=== PATIENT | male | born 1945 | race Caucasian/White ===

== ENCOUNTER 2020-01-13 16:39 | Inpatient (IN) | payer MEDICARE ==
--- NOTE | 2020-01-13 20:15 | NUR ---
NEW ADMIT TO DOCTOR TAYLOR FROM [facility] RELATED TO ALTERED MENTAL STATUS. PATIENT WAS CALM AND COOPERATIVE UPON ARRIVAL. HE IS A HEMODIALYSIS PATIENT MON, WED, FRI. HAS A LEFT CHEST PORT. PATIENTS SISTER, ALCIRA, CALLED. VERBAL CONSENT GIVEN. CODE STATUS OF DNR RECEIVED. PATIENT IS RESTING IN BED WITH EYES OPEN AT THIS TIME. ARETHA ALARM ACTIVE. CONTINUE TO MONITOR FOR SAFETY.
[2020-01-13 20:51] VITALS: BP 129/78
[2020-01-13] MEDS ORDERED: NORVASC10 MG PO (21:39)
[2020-01-13] MEDS ORDERED: ZETIA10 MG PO (21:40)
[2020-01-13] MEDS ORDERED: LOMOTIL 2.5-0.1 EAC1 PO (21:40)
[2020-01-13] MEDS ORDERED: FERRIC CITRATE210 MG PO (21:41)
[2020-01-13] MEDS ORDERED: PHENERGAN25 M1 PO (21:42)
[2020-01-13] MEDS ORDERED: MUPIROCIN15 GM TOPICAL (21:42)
[2020-01-13] MEDS ORDERED: PROTONIX40 MG PO (21:43)
[2020-01-13] MEDS ORDERED: CRESTOR40 MG PO (21:43)
[2020-01-13] MEDS ORDERED: ROCALTROL0.5 MCG PO (21:44)
[2020-01-13] MEDS ORDERED: COREG12.5 MG PO (21:44)
[2020-01-13] MEDS ORDERED: VITAMIN D1000 UNI1 PO (21:45)
[2020-01-13] MEDS ORDERED: SENSIPAR30 MG PO (21:45)
[2020-01-13] MEDS ORDERED: COLACE100 MG PO (21:46)
[2020-01-13] MEDS ORDERED: LASIX80 MG PO (21:48)
[2020-01-13] MEDS ORDERED: COZAAR100 MG PO (21:48)
[2020-01-13] MEDS ORDERED: RANITIDINE HCL150 M1 PO (21:49)
[2020-01-14 05:46] VITALS: BP 129/78
[2020-01-14 08:11] LABS: HEMOGLOBIN 9.7 g/dL (13.5-17.5); LYMPHOCYTES 16.6 % (15-50); MCHC 30.3 g/dL (31.0-37.0); MCV 95.5 fL (80.0-100.0); MEAN PLATELET VOLUME 9.2 fL (7.4-10.4); NEUTROPHILS 65.8 % (40-80); PLATELET COUNT 314 10x3/uL (130-400); RBC 3.35 10x6/uL (4.20-6.10); RDW 17.8 % (11.5-14.5); WBC 5.7 10x3/uL (4.8-10.8)
[2020-01-14 08:41] VITALS: BP 184/87
[2020-01-14 08:53] LABS: ALBUMIN 1.9 g/dL (3.4-5.0); BILIRUBIN - TOTAL 0.37 mg/dL (0.2-1.3); CALCIUM 9.9 mg/dL (8.5-10.1); CARBON DIOXIDE 28.7 mmol/L (21.0-32.0); CREATININE - SERUM 5.2 mg/dL (0.6-1.3); LDL-HDL RATIO 1.8 ratio (1.5-3.5); POTASSIUM - SERUM 4.7 mmol/L (3.5-5.1); PROTEIN - SERUM 6.1 g/dL (6.4-8.2); THYROID STIMULATING HORMONE 1.01 uIU/mL (0.36-3.74)
--- NOTE | 2020-01-14 12:00 | NUR ---
RECEIVED IN HALLWAY OUTSIDE OF NURSES STATION. CALM AND COOPERATIVE WITH CARE AND ASSESSMENT. NO HALLUCINATIONS NOTED. REDIRECT AND REORIENT NEEDED. EATING LUNCH AT THIS TIME. CONTINUE PLAN OF CARE.
[2020-01-14 14:12] VITALS: Wt 71.4 kg
--- NOTE | 2020-01-14 19:19 | NUR ---
RECEIVED IN DAYROOM. SITTING IN A CHAIR WITH PEERS AT HIS SIDE. CALM AND COOPERATIVE WITH CARE AND ASSESSMENT. NO SIGNS OF HALLUCIANTIONS OR PARANIOA. REDIRECT AND REORIENT NEEDED. CONTINUES TO SIT CALMLY. CONTINUE PLAN OF CARE.
[2020-01-14 20:24] VITALS: BP 158/74
[2020-01-15 07:12] LABS: RAPID PLASMA REAGIN Non Reactive (Non Reactive)
[2020-01-15 08:00] VITALS: BP 162/91
--- NOTE | 2020-01-15 12:00 | NUR ---
RECEIVED IN HALLWAY OUTSIDE OF NURSES STATION. CALM AND COOPERATIVE WITH CARE AND ASSESSMENT. NONCOMPLIANT AND REFUSING MEDS. DEMANDING AT TIMES. NO HALLUCINATIONS NOTED. REDIRECT AND REORIENT NEEDED. EATING AT THIS TIME. CONTINUE PLAN OF CARE.
--- NOTE | 2020-01-15 12:53 | PSY ---
PATIENT NAME:JOSE M SERVIN MEDICAL RECORD: [id number] : 43 LOCATION:AUBREY Jones ADMISSION DATE: 01/13/20 ACCOUNT: [id number] PSYCHIATRIC EVALUATION DATE OF EVALUATION: 01/14/20 IDENTIFYING DATA: The patient is 74 years old and he is admitted to the hospital on a voluntary basis. CHIEF COMPLAINT: Agitation. HISTORY OF PRESENT ILLNESS: The patient is transferred to us from a hospital in [place]. He was there because of confusion and he was felt to need inpatient mental health treatment, but this hospital is one of the few that can accept him if he is in need of mental health treatment and dialysis. The patient is clearly quite confused and disorganized and not able to provide very much in the way of useful history. He is documented to have been combative and to have hallucinations, both of which he denies. It is clear that he has severe memory impairment. PAST MEDICAL HISTORY: Significant for hypertension, end-stage renal disease with dialysis treatment. PAST PSYCHIATRIC HISTORY: Negative by his report, which is unreliable. FAMILY HISTORY: Significant for cancer. ALLERGIES: No known drug allergies. CURRENT MEDICATIONS: Include Norvasc, Lomotil, Zetia, iron, Phenergan, Crestor, Protonix, Coreg, Colace, Lasix and Cozaar. SOCIAL HISTORY: The patient is single. He says he has never been and has no children. Again, he is not a good historian. He says he used to smoke cigarettes, has smoked marijuana and has never been a drinker. MENTAL STATUS EXAMINATION: The patient is awake, alert and oriented to person and place, and only somewhat to time and situation. His mood is flat. His affect is constricted. Thought processes are circumstantial. Memory, concentration, and abstraction abilities are moderately impaired and he denies that he would seek to harm himself or others as well as active psychotic symptoms. ASSETS: Supportive family members, specifically his brother. LIABILITIES: Limited insight. DIAGNOSTIC IMPRESSION: AXIS I: Advanced major neurocognitive disorder of the Alzheimer's type with behavioral disturbances. AXIS II: None. AXIS III: Hypertension and end-stage renal disease. AXIS IV: Moderate. AXIS V: Global assessment of functioning is 35. PLAN: At this time, the patient is admitted to the hospital secondary to aggressive behavior associated with a dementing illness. He will be treated with both mood stabilizing and memory enhancing medications. His long-term prognosis is guarded. TRANSINT:[id number] Voice Confirmation ID: [id number] DOCUMENT ID: [id number] LEANDRO TAYLOR MD at 1253 CC: [id number] DICTATION DATE: 01/14/20 1208 LAUNCHING PAD MECHANIC: 01/14/20 1237 ADM IN [address] [id number] [place] [address]
[2020-01-15 20:06] VITALS: BP 159/81
--- NOTE | 2020-01-15 22:41 | NUR ---
B.) PT IS ALERT AND ORIENTED TO SELF, AND SITUATION AT TIMES. HE IS RECEIVED IN THE DAYROOM IN A GERICHAIR. HE USES A WHEELCHAIR TO ASSIST WITH AMBULATION. HE IS CALM AND COOPERATIVE WITH STAFF. DIALYSIS HAS BEEN POSTPONED UNTIL TOMORROW. I.) PROVIDED PM MEDICATION PRESCRIBED. REDIRECT OFTEN. R.) COMPLIANT WITH ALL MEDICATIONS. EASY TO REDIRECT. P.) WILL CONTINUE TO MONITOR.
[2020-01-16 10:30] VITALS: BP 157/97
--- NOTE | 2020-01-16 14:05 | NUR ---
Nutrition Follow-up: Overall good/fair PO intake. Diet: Renal PO intake: 76% avg x 6 meals Wt: 146.8# (01/13) No BMs recorded No new labs Meds noted: Pepcid, Sensipar, vitamin D, Calcitriol, Protonix, Colace, Lomotil, Lasix -Encourage PO intake and honor food preferences within diet restrictions. -Offer Nepro if PO intake <50%. -Monitor wt. -RD following.
--- NOTE | 2020-01-16 14:44 | PN ---
PATIENT:JOSE M SERVIN MEDICAL RECORD: [id number] LOCATION:AUBREY Toro ADMISSION DATE: 01/13/20 PROGRESS NOTE DATE OF SERVICE: 01/15/2020 SUBJECTIVE: The patient's case was discussed with staff. He has no new complaint. OBJECTIVE: The patient is in good behavioral control. He is cooperative, polite, but not oriented. He is refusing to take all of his medications and when asked about this, he insists he has been taking them. I have encouraged him to take his medicines that there is little that we can do to help him if he will not do so. ASSESSMENT: Dementia. PLAN: Current medicines will be maintained. There is little point in trying to adjust them when he is not taking what is currently ordered consistently. Every effort will be made to have him engage in compliance. There does not seem to be some particular objection to a medicine or anything in general, he just is refusing to cooperate, but then insists to me that he is. TRANSINT:[id number] Voice Confirmation ID: [id number] DOCUMENT ID: [id number] LEANDRO TAYLOR MD at 1444 CC: [id number] DICTATION DATE: 01/15/20 1557 PULPER OPERATOR: 01/15/20 1616 ADM IN [facility] [address] [place] [address]
--- NOTE | 2020-01-16 18:05 | NUR ---
PT SISTER CALLED TO CHECK ON HIM. PASSCODE GIVEN. SISTER ASKED HOW HE WAS DOING TODAY. NURSE STATED HE WAS THINKING HIS WAS WAITING IN THE TRUCK FOR HIM AND HE WOULD BE IN TROUBLE IF HE DIDNT MEET HER IN THE TRUCK. NURSE ATTEMPTEDT TO REDIRECT PT AND HE BECAME ARGUEMENTATIVE STATING "WELL LUÍS GOT TO GET MY OUT OF THE TRUCK." EXIT-SEEKING. NURSE ABLE TO REDIRECT TO EAT DINNER. PT SISTER STATED "WELL DID YOU GIVE HIM SOMETHING TO MESS WITH HIS HEAD?" NURSE ASKED MEANING. SHE STATED I MEAN HE WAS CLEAR YESTERDAY, HE REPEATED EVERYTHING I SAID AND WAS TALKING TO ME." NURSE STATED NO NEW MEDICATIONS WERE ADDED THIS SHIFT THAT PT TOOK. HE DID HAVE DIALYSIS AND TOLERATED WELL.
[2020-01-16 20:00] VITALS: BP 122/72
--- NOTE | 2020-01-16 22:12 | NUR ---
B)RECEIVED PATIENT SITTING IN THE DAYROOM. CONFUSED AND DISORIENTED. RELATED HE IS IN [place]" THEN RELATED "I DON'T KNOW WHERE I AM." RELATES HE IS HERE "FOR DIALYSIS." COULD NOT TELL NURSE WHAT HIS DIALYSIS DAYS ARE. TOLD NURSE "I NEED TO GO TO MY TRUCK. I'M GOING HOME TONIGHT." I)ADMINISTER MEDS AND MONITOR COMPLIANCE. REORIENT NEEDED. R)MED COMPLIANT. POOR REORIENTATION DUE TO IMPAIRED ABILITY TO COMPREHEND, PROCESS AND RETAIN INFORMATION. P)CONTINUE POC AND PROVIDE SAFE ENVIRONMENT.
[2020-01-17 07:13] LABS: HEPATITIS C ANTIBODY <0.1 (0.0-0.9)
[2020-01-17 09:41] VITALS: BP 100/51
--- NOTE | 2020-01-17 11:20 | NUR ---
PT LAYING ON THE COUCH WITH EYES CLOSED. PT STATED HE DID NOT FEEL GOOD AT THIS TIME. PT IS CONFUSED AND DISORIENTED TO PLACE, TIME AND SITUATION. PT IS COMPLIANT WITH MEDS, VITALS AND ASSESSMENTS. NURSE HELD BP MEDICAITIONS DUE TO LOW BLOOD PRESSURE. MAKE DR. QUESADA AWARE OF LOW BLOOD PRESSURE AND GENERAL FATIGUE. PT REQUIRES ASSISTANCE WITH TRANSFERS. CHAIR ALARM IN PLACE AND ACTIVE. WILL CONT PLAN OF CARE.
--- NOTE | 2020-01-17 13:47 | PN ---
PATIENT:JOSE M SERVIN MEDICAL RECORD: [id number] LOCATION:AUBREY Zhao112 ADMISSION DATE: 01/13/20 PROGRESS NOTE DATE OF SERVICE: 01/16/2020 SUBJECTIVE: The patient's case was discussed with staff. He has no new complaint. OBJECTIVE: The patient is only oriented to person. He is severely impaired cognitively. He denies that he would seek to harm himself or others. It is clear that he has an advanced dementia and it is furthermore clear that this did not start recently by that I mean this is not an acute process. ASSESSMENT: Dementia. PLAN: The patient is going to be given Namenda at a dose of 2.5 mg twice daily to assist with his cognitive impairment. The patient has consented to stay on a voluntary basis. He is wanting me to assist him. This patient is impaired in a serious way and is going to need 63-mmkt-j-day supervision. His sister, Viviane has called and had her document review attorney call. She wants him to sign documents giving her power of document review attorney over his state. I am aware that there are 2 other siblings and that they are disagreeing about fdc placement versus just taking him home and caring for him. At this point, I am not comfortable with this process. The patient does not understand what he is signing; I think it is inappropriate for him to be asked to sign such a document given his current mental status. If there is additional resistance to this decision, I am going to defer to the judgment of the hospital document review attorney. At this point, my interest is in protecting him and I do not see why it is urgent that the power of document review attorney for his state be signed today. TRANSINT:[id number] Voice Confirmation ID: [id number] DOCUMENT ID: [id number] LEANDRO TAYLOR MD at 1347 CC: [id number] DICTATION DATE: 01/16/20 1452 LITHOGRAPHIC CAMERA OPERATOR: 01/16/202026 ADM IN [facility] [address] [id number]
--- NOTE | 2020-01-17 17:37 | NUR ---
ALCIRA WHITLOCK CALLED TO CHECK ON PT CONDITION. PASSCODE GIVEN. SHE WANTED TO KNOW HOW HE WAS DOING AND IF HE WAS ANY CLEARER TODAY. SHE WANTED TO KNOW IF THE DOCTOR HAD EVAL HIM AT ALL. NURSE READ DOCTOR DIAGNOSIS TO HER STATING "ADVANCED MAJOR NEUROCOGNITIVE DISORDER OF THE ALZHEIMER'S TYPE WITH BEHAVIORAL DISTURBANCES. WAS THE DIAGNOSIS IN THE DOCTORS NOTE." SHE STATED SO HE IS INCOMPETENT?" NURSE EXPLAINED THE DIAGNOSIS STATED ADVANCED ALZHEIMERS TYPE. SHE STATED OKAY WELL CAN I TALK TO HIM.
[2020-01-17 20:00] VITALS: BP 121/70
--- NOTE | 2020-01-17 20:00 | NUR ---
PATIENT IS VERY CONFUSED, NOT TRUSTING AT TIMES, COMPLIANT WITH MEDS MOST OF THE TIME, FLAT AFFECT, ISOLATES SELF, MAKES SIMPLE NEEDS KNOWN, DISHEVELED IN APPEARANCE. WILL MONITOR AND FOLLOW POC
[2020-01-18 07:12] LABS: HEPATITIS BE ANTIGEN Negative (Negative)
[2020-01-18 09:03] VITALS: BP 145/89
--- NOTE | 2020-01-18 12:02 | NUR ---
PT SITTING EATING LUNCH AT THIS TIME. PT IS FRIENDLY WITH STAFF AND PEERS THIS SHIFT. CAN MAKE NEEDS KNOWN. NO ACUTE DISTRESS NOTED. COMPLIANT WITH MEDS, VITALS AND ASSESSMENTS. CONFUSED AND ALERT TO SELY ONLY. CHAIR ALARM IN PLACE AND ACTIVE. WILL CONT PLAN OF CARE.
--- NOTE | 2020-01-18 12:44 | PN ---
PATIENT:JOSE M SERVIN MEDICAL RECORD: [id number] LOCATION:AUBREY Toro ADMISSION DATE: 01/13/20 PROGRESS NOTE DATE OF SERVICE: 01/17/2020 SUBJECTIVE: The patient's case was discussed with staff. He has no new complaint. OBJECTIVE: The patient is quite impaired cognitively. He denies that he would seek to harm himself or others. He has not been significantly agitated with staff today. ASSESSMENT: Dementia. PLAN: The patient is going to be given Megace to assist with appetite stimulation. His long-term prognosis is guarded. TRANSINT:[id number] Voice Confirmation ID: [id number] DOCUMENT ID: [id number] LEANDRO TAYLOR MD at 1244 CC: [id number] DICTATION DATE: 01/17/201423 SOCCER REFEREE: 01/17/20 2139 ADM IN [facility] [address] [place] [address]
--- NOTE | 2020-01-18 13:40 | NUR ---
PT SISTER CALLED AND ASKED THAT IF HIS SIBLINGS CALL TO MAKE SURE THEY DONT UPSET HIM. IF THEY DO TO CUT HIM OFF. NURSE EXPLAINED THAT HE WOULD HAVE TO SAY YES OR NO ON CUTTING THEM OFF CAUSE HE STILLIS HIS OWN PERSON BUT WE WOULD NOT FORCE HIM TO TALK TO THEM.
[2020-01-18 20:00] VITALS: BP 127/79
--- NOTE | 2020-01-18 22:42 | NUR ---
B)RECEIVED PATIENT SITTING IN THE DAYROOM. RELATES HE IS IN THE HOSPITAL ON THE [facility] [place]. NO INSIGHT INTO THE REASON FOR HOSPITALIZATION RELATING "THEY SAID I WAS ACTING AND DOING CRAZY THINGS.". UNKEPT APPEARANCE. DOES NOT INITIATE CONVERSATION. FAMILY CALLED AND WAS ASKING WHO ALL HAD CALLED PATIENT AND IF HE GOT UPSET WHEN TALKING WITH THESE PEOPLE. I)ADMINISTER MEDS AND MONITOR COMPLIANCE. REORIENT NEEDED. R)MED COMPLIANT. POOR REORIENTATION DUE TO IMPAIRED ABILITY TO RETAIN INFORMATION. P)CONTINUE POC AND PROVIDE SAFE ENVIRONMENT.
[2020-01-19 09:33] VITALS: BP 185/98
--- NOTE | 2020-01-19 10:03 | PN ---
PATIENT:JOSE M SERVIN MEDICAL RECORD: [id number] LOCATION:AUBREY Toro ADMISSION DATE: 01/13/20 PROGRESS NOTE DATE OF SERVICE: 01/18/2020 SUBJECTIVE: The patient's case was discussed with staff. He has no new complaint. OBJECTIVE: The patient is not eating well. He has been quiet and somewhat withdrawn. He is only partially oriented. ASSESSMENT: Dementia. PLAN: Current medicines have been reviewed and will be maintained. Long-term prognosis is guarded. I anticipate he can be transitioned out of the hospital soon if this level of improvement continues. TRANSINT:[id number] Voice Confirmation ID: [id number] DOCUMENT ID: [id number] LEANDRO TAYLOR MD at 1003 CC: [id number] DICTATION DATE: 01/18/20 1346 ETL INFORMATICA ARCHITECT: 01/18/20 1753 ADM IN [facility] [address] [place] [address]
--- NOTE | 2020-01-19 12:00 | NUR ---
RECEIVED IN HALLWAY OUTSIDE OF NURSES STATION. CALM AND COOPERATIVE WITH CARE AND ASSESSMENT. VERY CONFUSED. THINKS EVERYONE IS IN HIS HOUSE. YELLING AT EVERYONE TO GET OUT OF HIS HOUSE. REDIRECT AND REORIENT NEEDED. EATING LUNCH AT THIS TIME. CONTINUE PLAN OF CARE.
--- NOTE | 2020-01-19 19:52 | NUR ---
RECEIVED IN DAYROOM. SITTING IN A CHAIR DURING GROUP. CALM AND COOPERATIVE WITH CARE NAD ASSESSMENT. NO SIGNS OF AGGRESSION OR HALLUCINATIONS. REDIRECT AND REORIENT NEEDED. CONTINUES TO SIT CALMLY IN DAYROOM. CONTINUE PLAN OF CARE.
[2020-01-19 20:00] VITALS: BP 149/80
[2020-01-20 07:51] LABS: BASOPHILS 0.4 % (0-2); EOSINOPHILS 2.7 % (0-7); HEMATOCRIT 29.1 % (42.0-54.0); HEMOGLOBIN 9.2 g/dL (13.5-17.5); IMMATURE GRANULOCYTES 0.3 % (0-5); LYMPHOCYTES 17.6 % (15-50); MCH 29.1 pg (26.0-34.0); MCHC 31.6 g/dL (31.0-37.0); MCV 92.1 fL (80.0-100.0); MEAN PLATELET VOLUME 9.5 fL (7.4-10.4); MONOCYTES 15.7 % (2-11); NEUTROPHILS 63.3 % (40-80); PLATELET COUNT 326 10x3/uL (130-400); RBC 3.16 10x6/uL (4.20-6.10); RDW 16.4 % (11.5-14.5); WBC 7.1 10x3/uL (4.8-10.8)
[2020-01-20 07:57] LABS: CALCIUM 10.1 mg/dL (8.5-10.1); CARBON DIOXIDE 26.8 mmol/L (21.0-32.0); CREATININE - SERUM 6.7 mg/dL (0.6-1.3); POTASSIUM - SERUM 3.8 mmol/L (3.5-5.1)
[2020-01-20 09:39] VITALS: BP 176/89
--- NOTE | 2020-01-20 12:00 | NUR ---
RECEIVED IN HALLWAY OUTSIDE OF NURSES STATION. CALM AND COOPERATIVE WITH CARE AND ASSESSMENT. NO BEHAVIORS. REDIRECT AND REORIENT NEEDED. EATING LUNHC AT THIS TIME. CONTINUE PLAN OF CARE.
--- NOTE | 2020-01-20 13:21 | PN ---
PATIENT:JOSE M SERVIN MEDICAL RECORD: [id number] LOCATION:AUBREY Toro ADMISSION DATE: 01/13/20 PROGRESS NOTE DATE OF SERVICE: 01/19/2020 SUBJECTIVE: The patient's case was discussed with staff. He has no new complaint. OBJECTIVE: The patient is disorganized and confused. He is angry and wants me to unlock the door so he can get to his truck, which he believes is in the parking lot. It is not in a parking lot, but he is argumentative about that. He states that he wants to get his truck and move to [place], [place]. He says that he can drive and live there independently. ASSESSMENT: Dementia. PLAN: The patient is going to be given a low dose of Celexa for his depressed mood. He will be monitored for clinical changes associated with its use. TRANSINT:[id number] Voice Confirmation ID: [id number] DOCUMENT ID: [id number] LEANDRO TAYLOR MD at 1321 CC: [id number] DICTATION DATE: 01/19/20 1129 COMMERCIAL DRONE PILOT: 01/19/20 1441 ADM IN [facility] [address] [place] [address]
[2020-01-20 14:09] LABS: HEPATITIS BE ANTIBODY Negative (Negative)
--- NOTE | 2020-01-20 19:41 | NUR ---
RECEIVED IN DAYROOM. SITTING IN A RECLINER WITH PEERS AT HIS SIDE. CALM AND COOPERATIVE WITH CARE AND ASSESSMENT. NO SIGNS OF HALLUCINATIONS. REDIRECT AND REORIENT NEEDED. SITTING CALMLY IN HALLWAY OUTSIDE OF NURSES STATION AT THIS TIME. CONTINUE PLAN OF CARE.
[2020-01-20 19:49] VITALS: BP 122/71
[2020-01-21 08:09] VITALS: BP 127/72
--- NOTE | 2020-01-21 12:00 | NUR ---
RECEIVED IN HALLWAY OUTSIDE OF NURSES STATION. CALM AND COOPERATIVE WITH CARE AND ASSESSMENT. NO BEHAVIORS TODAY. REDIRECT AND REORIENT NEEDED. EATING LUNCH AT THIS TIME. CONTINUE PLAN OF CARE.
--- NOTE | 2020-01-21 13:18 | PN ---
PATIENT:JOSE M SERVIN MEDICAL RECORD: [id number] LOCATION:CULLENPriyanka SpikeLesaMiryam ADMISSION DATE: 01/13/20 PROGRESS NOTE DATE OF SERVICE: 01/20/2020 SUBJECTIVE: The patient's case was discussed with staff. He has no new complaint. OBJECTIVE: The patient is impaired cognitively and difficult to redirect at times. ASSESSMENT: Dementia. PLAN: The patient's Namenda is going to be increased slightly. Namenda is being used to treat his underlying dementia. He will be monitored for clinical changes associated with its use. TRANSINT:[id number] Voice Confirmation ID: [id number] DOCUMENT ID: [id number] LEANDRO TAYLOR MD at 1318 CC: [id number] DICTATION DATE: 01/20/20 1520 INFORMATION SYSTEMS AUDIT MANAGER: 01/20/20 2238 ADM IN [id number] [place] [address]
--- NOTE | 2020-01-21 19:56 | NUR ---
RECEIVED IN DAYROOM SITTING IN A RECLINER WITH PEERS AT HIS SIDE. CALM AND COOPERATIVE WITH CARE AND ASSESSMENT. NO SIGNS OF AGGRESSION. REDIRECT AND REORIENT NEEDED. CONTINUES TO SIT CALMLY IN DAYROOM. CONTINUE PLAN OF CARE.
[2020-01-21 20:11] VITALS: BP 115/61
[2020-01-22 08:36] VITALS: BP 114/69
[2020-01-22 09:12] LABS: BASOPHILS 0.3 % (0-2); HEMATOCRIT 24.7 % (42.0-54.0); HEMOGLOBIN 7.6 g/dL (13.5-17.5); IMMATURE GRANULOCYTES 0.3 % (0-5); LYMPHOCYTES 17.9 % (15-50); MCH 28.4 pg (26.0-34.0); MCHC 30.8 g/dL (31.0-37.0); MCV 92.2 fL (80.0-100.0); MEAN PLATELET VOLUME 9.6 fL (7.4-10.4); MONOCYTES 19.2 % (2-11); NEUTROPHILS 60.3 % (40-80); PLATELET COUNT 331 10x3/uL (130-400); RBC 2.68 10x6/uL (4.20-6.10); RDW 16.7 % (11.5-14.5); WBC 6.9 10x3/uL (4.8-10.8)
[2020-01-22 09:15] LABS: ANION GAP 12.2 mmol/L (8-16); CALCIUM 10.3 mg/dL (8.5-10.1); CARBON DIOXIDE 26.8 mmol/L (21.0-32.0); CREATININE - SERUM 4.9 mg/dL (0.6-1.3)
--- NOTE | 2020-01-22 13:35 | PN ---
PATIENT:JOSE M SERVIN MEDICAL RECORD: [id number] LOCATION:AUBREY LalaLesaMiryam ADMISSION DATE: 01/13/20 PROGRESS NOTE DATE OF SERVICE: 01/21/2020 SUBJECTIVE: The patient's case was discussed with staff. He has no new complaint. OBJECTIVE: The patient is partially oriented. His mood is euthymic. He slept well last night and he ate well yesterday. ASSESSMENT: Dementia. PLAN: Brief supportive and educational interventions were made. Long-term prognosis is guarded. TRANSINT:[id number] Voice Confirmation ID: [id number] DOCUMENT ID: [id number] LEANDRO TAYLOR MD at 1335 CC: [id number] DICTATION DATE: 01/21/20 1539 RAILROAD CAR CHECKER: 01/22/20 0047 ADM IN [facility] [address] [place] [address]
--- NOTE | 2020-01-22 19:06 | NUR ---
RECEIVED UP SITTING IN WHEELCHAIR AT NURSES STATION THIS AM.IS COMPLIANT WITH STAFF AND MEDICATIONS.NO HALLUCINATIONS OBSERVED.WILL CONTINUE [facility] CURRENT PLAN OF CARE.
[2020-01-22 20:03] VITALS: BP 110/61
--- NOTE | 2020-01-22 21:11 | NUR ---
PATIENT IS CONFUSED, PLEASANT MOST OF THE TIME, COMPLIANT WITH MEDS, NO ADVERSE REACTION NOTED, CAN MAKE NEEDS KNOWN, COMMUNICATES WITH OTHERS MINIMALLY. WILL FOLLOW POC
--- NOTE | 2020-01-23 08:00 | NUR ---
FIRST UNIT OF BLOOD HANGING AT THIS TIME. PT DENIES ANY PAIN. I.V. SITE INTACT AND PATENT. WILL CONT TO MONITOR.
--- NOTE | 2020-01-23 08:40 | NUR ---
PT IN BED AT THIS TIME. NEW ORDERS FOR 2 UNITS OF PACKED RED BLOOD CELLS. PT IS CONFUSED AND DISORIENTED. REDIRECT AND REORIENT NEEDED. NO ACUTE DISTRESS NOTED. PT IS DROWSY AT THIS TIME. PT COMPLIANT WITH MEDS, VITALS AND ASSESSMENTS. PT 2X ASSIST WITH TRANFERS. BED ALARM ON AND ACTIVE AT THIS TIME. WILL CONT PLAN OF CARE.
--- NOTE | 2020-01-23 09:55 | NUR ---
FIRST UNIT OF PACKED RED CELLS HUNG AT 0949. PT TOLERATING WELL. VITALS SIGNS: T: 97.7, P: 78, R: 18, B/P: 124/69. WILL RECHECK VITALS.
--- NOTE | 2020-01-23 10:05 | NUR ---
VITALS SIGNS: T: 98.3, P: 77, R: 18, B/P: 126/53. NO S/S OF REACTION NOTED. WILL CONT TO MONITOR FOR S/SX.
[2020-01-23 10:26] LABS: BASOPHILS 0.6 % (0-2); EOSINOPHILS 2.3 % (0-7); HEMOGLOBIN 7.7 g/dL (13.5-17.5); IMMATURE GRANULOCYTES 0.8 % (0-5); LYMPHOCYTES 16.9 % (15-50); MCH 28.5 pg (26.0-34.0); MCHC 30.8 g/dL (31.0-37.0); MCV 92.6 fL (80.0-100.0); MEAN PLATELET VOLUME 9.7 fL (7.4-10.4); MONOCYTES 15.3 % (2-11); NEUTROPHILS 64.1 % (40-80); PLATELET COUNT 368 10x3/uL (130-400); RDW 16.8 % (11.5-14.5); WBC 7.1 10x3/uL (4.8-10.8)
--- NOTE | 2020-01-23 10:45 | NUR ---
NURSE CHECKED ON PT. PT SLEEPING AT THIS TIME. I.V. PATENT AND FLOWING AT THIS TIME.
--- NOTE | 2020-01-23 11:20 | NUR ---
PT SLEEPING AT THIS TIME. NO REACTION NOTED.
--- NOTE | 2020-01-23 12:25 | NUR ---
VITALS: 97.6, 76, 16, 140/68. FIRST VITAL SIGNS FOR SECOND UNIT OF PACKED BLOOD CELLS.
--- NOTE | 2020-01-23 12:45 | NUR ---
15 MINUTES VITALS AFTER SECOND BAG HUNG: T: 97.6 ORAL, P: 76, R: 16, B/P: 148/76. WILL CONT TO MONITOR.
--- NOTE | 2020-01-23 13:38 | NUR ---
Nutrition Follow-up: PO intake fluctuates. Ate 25-90% of meals yesterday. Noted Megace started 01/17. Diet: Renal PO intake: 57% avg x 9 meals WT: 148.4# (01/18); 146.8# (01/13) Last BM: 01/21 Labs reviewed Meds noted: Megace, Pepcid, Sensipar, vitamin D, Calcitriol, Protonix, Colace, Lasix -Encourage PO intake and honor food preferences within diet restrictions. -+Nepro BID. -Monitor wt. -RD following.
--- NOTE | 2020-01-23 14:01 | PN ---
PATIENT:JOSE M SERVIN MEDICAL RECORD: [id number] LOCATION:AUBREY Toro ADMISSION DATE: 01/13/20 PROGRESS NOTE DATE OF SERVICE: 01/22/2020 SUBJECTIVE: The patient's case was discussed with staff. He has no new complaint. OBJECTIVE: The patient is quite disorganized and cognitively impaired, but his behavior is good. He is eating and sleeping well and he is cooperative with dialysis. ASSESSMENT: Dementia. PLAN: Brief supportive and educational interventions were provided current medicines were reviewed. He will be transitioned to the fpc in [place] as soon as he is medically stabilized and the office of long-term care gives approval. TRANSINT:[id number] Voice Confirmation ID: [id number] DOCUMENT ID: [id number] LEANDRO TAYLOR MD at 1401 CC: [id number] DICTATION DATE: 01/22/20 1521 AUTOMATIC PILOT MECHANIC: 01/23/20 0145 ADM IN [facility] [address] [place] [address]
--- NOTE | 2020-01-23 15:26 | NUR ---
PT LAYING IN BED AT THIS TIME. PT IS STILL ON I.V. RECIEVING BLOOD AT THIS TIME. PT TOLERATING WELL AND CONSENT SIGNED ON THE CHART. PT IS CONFUSED AT TIMES. PT IS ALERT AND ORIENTED AT THIS TIME. REDIRECT AND REORIENT NEEDED. BED ALARM ON AND IN PLACE AND ACTIVE. PT IS IN A GOOD MOOD. IV INTACT AND DRY. WILL CONT TO MONITOR AND PLAN OF CARE.
[2020-01-23 16:03] VITALS: BP 124/69
--- NOTE | 2020-01-23 17:34 | NUR ---
SECOND INFUSION PARTICALLY COMPLETED AT THIS TIME. PT VITALS SIGNS: 141/73, P: 73, R: 16, O2: 94%, T: 98.1. PT TOLERATED WELL. PT CONTS WITH CONFUSION AT THIS TIME. WILL RECHECK VITALS Q 1 HOUR. BED ALARM ON AND ACTIVE. WILL CONT TO MONITOR.
--- NOTE | 2020-01-23 18:54 | NUR ---
T: 98.4, P: 73, B/P: 143/79, 94% R: 15.
--- NOTE | 2020-01-23 19:14 | NUR ---
3 OF PTS FAMILY MEMBERS CALLED THIS SHIFT. NURSE NOTIFIED THEM THE PT DID NOT FEEL GOOD AND SHE DID NOT WANT TO WAKE HIM UP. THEY VERBALIZIED UNDERSTANDING. PT REFUSED DIALYSIS. ALCIRA CHINYERE STATED SHE WANTED THE PT TO SIGN POA PAPERWORK SO SHE COULD PAY HIS LIGHT BILL AND FURNITURE PAYMENT. SHE ATTEMPTEDT TO PAY IT AND THEY REFUSED HER TO PAY HIS BILLS. NURSE DIRECTED HER TO CALL IN THE A.M. AND SPEAK WITH THE COLLECTIONS DIRECTOR IN REGARDS TO THAT MATTER. THAT USUALLY PTS DO NOT SIGN LEGAL PAPERWORK WHILE ADMITTED TO OUR UNIT.
[2020-01-23 20:00] VITALS: BP 135/74
[2020-01-23 20:29] LABS: HEMATOCRIT 28.7 % (42.0-54.0)
[2020-01-23 20:32] LABS: HEMOGLOBIN 9.3 g/dL (13.5-17.5)
--- NOTE | 2020-01-23 22:35 | NUR ---
B)RECEIVED PATIENT LYING IN THE BED. PT RECEIVED PRBCS TODAY AND DID NOT FEEL LIKE RECEIVING HIS DIALYSIS TREATMENT TODAY WHEN THE DIALYSIS NURSE CAME TO THE UNIT. CONFUSED AND DISORIENTED. POOR INSIGHT RELATING HE IS HERE "GET MY LEG CHECKED. THINK IT WAS CRACKED." SALINE LOCK TO RIGHT HAND. I)ADMINISTER MEDS AND MONITOR COMPLIANCE. REORIENT NEEDED. R)MED COMPLIANT. POOR REORIENTATION DUE TO IMPAIRED ABILITY TO PROCESS AND REATIN INFORMATION. P)CONTINUE POC AND PROVIDE SAFE ENVIRONMENT.
[2020-01-24 07:11] LABS: % SATURATION 12 % (15-55); IRON 26 ug/dl (35-150); TOTAL IRON BIND CAPACITY 201 ug/dl (260-445); UNSAT IRON BIND CAPACITY 175 ug/dl (150-375)
[2020-01-24 07:37] LABS: FERRITIN 382 ng/mL (3-244)
[2020-01-24 09:57] VITALS: BP 167/86
--- NOTE | 2020-01-24 10:59 | NUR ---
PT SITTING IN W/C SOCIALIZING WITH PEERS. PT IS CALM AND COOPERATIVE WITH STAFF. CONFUSION NOTED. PT ALERT TO SELF ONLY. PT IS COMPLIANT WITH MEDS, VITALS AND ASSESSMENTS. PT HAS DIALYSIS TODAY. IV IN RIGHT FOREARM. PT REQURIES ASSISTANCE WITH ADLS. PT IN A W/C. STILL WORKING WITH P.T. CHAIR ALARM IN PLACE AND ACTIVE. WILL CONT PLAN OF CARE.
--- NOTE | 2020-01-24 15:33 | NUR ---
TOO CONTACTED PT'S SISTER PER HER REQUEST. WENT TO . TOO LEFT A MESSAGE EXPLAINING PT HAS BEEN REFERRED TO [facility] BUT THEY STATED THEY HAVE NO LTC BEDS AVAIALABLE BUT THEY DO HAVE REHAB BEDS. TOO ADVOCATED FOR HIM TO GO TO THEM FOR REHAB. TOO STATED SHE CAN COME PICK PT UP IF SHE WANTS HIM DISCHARGED FROM UNIT. PT IS STABLE AND NEEDS A SAFE DISCHARGE PLAN. TOO WILL AWAIT PT'S SISTER TO CONTACT HER AGAIN FOR A SAFE DISCHARGE PLAN. IT WAS ALSO REPORTED SHE WANTS TO SPEAK TO THE MD. TOO ALERTED CHERELLE CABALLERO AND SHE MADE PHONE CALL TO PT'S SISTER.
--- NOTE | 2020-01-24 15:38 | NUR ---
chaitanya arroyo called and wanted to know if he was discharging today its been 14 days. nurse explained that from the information she recieved that a referral was made that we were waiting for a yes or no from that facility. she wanted to know why the doctor hadnt called her this shift. nurse notified her that joão was here at this time. she wanted to know if she could talk to her. nurse attempted to explain she would have to call her office and see if she was there. she said she would call chey the social service liaison.
[2020-01-24 20:00] VITALS: BP 105/56
--- NOTE | 2020-01-24 21:45 | NUR ---
B.) PT IS ALERT AND ORIENTED TO SELF ONLY. HE IS CALM AND COOPERATIVE WITH STAFF. HE USES A WHEELCHAIR TO ASSIST WITH AMBULATION. HE IS RECEIVED IN THE HALLWAY OUTSIDE THE NURSES STATION SOCIALIZING WITH HIS PEERS. I.) PROVIDED PM MEDICATIONS PRESCRIBED. REDIRECT OFTEN. APPLIED CLEAN DRESSING TO RIGHT HAND SALINE LOCKED PIV. R.) COMPLIANT WITH ALL MEDICATIONS. EASY TO REDIRECT AND TOLERATED DRESSING CHANGE WELL. P.) WILL CONTINUE TO MONITOR.
[2020-01-25 06:52] LABS: ANION GAP 13.4 mmol/L (8-16); CALCIUM 10.9 mg/dL (8.5-10.1); CARBON DIOXIDE 26.7 mmol/L (21.0-32.0); CREATININE - SERUM 5.7 mg/dL (0.6-1.3); PHOSPHOROUS 3.9 mg/dL (2.5-4.9); POTASSIUM - SERUM 4.1 mmol/L (3.5-5.1)
[2020-01-25 06:58] LABS: HEMATOCRIT 32.3 % (42.0-54.0); HEMOGLOBIN 10.1 g/dL (13.5-17.5); MCHC 31.3 g/dL (31.0-37.0); MEAN PLATELET VOLUME 9.3 fL (7.4-10.4); RDW 17.8 % (11.5-14.5); WBC 7.6 10x3/uL (4.8-10.8)
[2020-01-25 07:12] LABS: MCV 89.5 fL (80.0-100.0); RBC 3.61 10x6/uL (4.20-6.10)
--- NOTE | 2020-01-25 07:40 | NUR ---
The patient is awake and he is pleasant this am, he requests his jacket. Looked in his room and he did not have a jacket, provided him his blanket. He is always cold. He has not shown any aggression or hallucinations today. He has poor insight into his situation. Provide prescribed meds. The patient self propels in a w/c. Continue POC.
[2020-01-25 08:09] VITALS: BP 160/76
[2020-01-25 20:00] VITALS: BP 112/58
--- NOTE | 2020-01-25 22:28 | NUR ---
B.) PT IS ALERT AND ORIENTED TO SELF AND PLACE. HE HAS POOR INSIGHT INTO HIS SITUATION. HE IS RECEIVED IN A GERICHAIR IN THE DAY ROOM. HE IS CALM AND COOPERATIVE WITH STAFF. HE HAS AN APPROPRIATE AFFECT. I.) PROVIDED PM MEDICATIONS PRESCRIBED. REDIRECT OFTEN. R.) COMPLIANT WITH ALL MEDICATIONS. EASY TO REDIRECT. P.) WILL CONTINUE TO MONITOR.
[2020-01-26 08:34] VITALS: BP 135/66
--- NOTE | 2020-01-26 14:12 | NUR ---
RECEIVED THIS AM SITTING UP IN RECLINER.IS CONFUSED AND DISORIENTED.COMPLIANT WITH STAFF.NO HALLUCINATIONS OR COMBATIVNESS OBSERVED.WILL CONTINUE WITH CURRENT PLAN OF CARE,
--- NOTE | 2020-01-26 19:47 | NUR ---
RECEIVED IN DAYROOM. SITTING IN A RECLINER WITH PEERS AT HIS SIDE. CALM AND COOPERATIVE WITH CARE AND ASSESSMENT. NO SIGNS OF AGGRESSION OR HALLUCINATIONS. REDIRECT AND REORIENT NEEDED. CONTINUES TO SIT CALMLY IN DAYROOM. CONTINUE PLAN OF CARE.
[2020-01-26 20:04] VITALS: BP 125/67
[2020-01-27 07:40] VITALS: BP 102/66
--- NOTE | 2020-01-27 12:00 | NUR ---
RECEIVED IN HALLWAY OUTSIDE OF NURSES STATION. CALM AND COOPERATIVE WITH CARE AND ASSESSMENT. NO BEHAVIORS. REDIRECT AND REORIENT NEEDED. EATING LUNCH AT THIS TIME. CONTINUE PLAN OF CARE.
--- NOTE | 2020-01-27 12:04 | PN ---
PATIENT:JOSE M SERVIN MEDICAL RECORD: [id number] LOCATION:[facility] ADMISSION DATE: 01/13/20 PROGRESS NOTE DATE OF SERVICE: 01/23/2020 SUBJECTIVE: The patient's case was discussed with staff. He has no new complaint. OBJECTIVE: The patient is disorganized with severe memory impairment, but no thoughts of self-harm. He is participating in treatment reasonably well. ASSESSMENT: Dementia. PLAN: Current medicines and therapies have been reviewed and will be maintained. TRANSINT:[id number] Voice Confirmation ID: [id number] DOCUMENT ID: [id number] LEANDRO TAYLOR MD at 1204 CC: [id number] DICTATION DATE: 01/23/20 1558 MUSHROOM CULTIVATOR: 01/23/20 1754 ADM IN [place] [address] [place] [address]
--- NOTE | 2020-01-27 19:59 | NUR ---
RECEIVED IN HALLWAY SITTING OUTSIDE OF NURSES STATION. CALM AND COOPERATIVE WITH CARE AND ASSESSMENT. NO SIGNS OF HALLUCINATIONS. NO SIGNS OF AGGRESSION. REDREICT AND REORIENT NEEDED. CONTINUES TO STI CALMLY IN HALLWAY. CONTINUE PLAN OF CARE.
[2020-01-27 21:00] VITALS: BP 138/70
[2020-01-28 07:55] LABS: HEMATOCRIT 32.3 % (42.0-54.0); HEMOGLOBIN 10.5 g/dL (13.5-17.5); MCH 28.8 pg (26.0-34.0); MCHC 32.5 g/dL (31.0-37.0); MCV 88.5 fL (80.0-100.0); MEAN PLATELET VOLUME 9.6 fL (7.4-10.4); RBC 3.65 10x6/uL (4.20-6.10); RDW 17.2 % (11.5-14.5); WBC 9.3 10x3/uL (4.8-10.8)
[2020-01-28 08:02] LABS: ANION GAP 19.7 mmol/L (8-16); CALCIUM 11.7 mg/dL (8.5-10.1); CARBON DIOXIDE 20.9 mmol/L (21.0-32.0); CREATININE - SERUM 9.3 mg/dL (0.6-1.3); PHOSPHOROUS 7.1 mg/dL (2.5-4.9); POTASSIUM - SERUM 4.6 mmol/L (3.5-5.1)
--- NOTE | 2020-01-28 15:00 | PN ---
PATIENT:JOSE M SERVIN MEDICAL RECORD: [id number] LOCATION:[facility] ADMISSION DATE: 01/13/20 PROGRESS NOTE DATE OF SERVICE: 01/27/2020 SUBJECTIVE: The patient's case was discussed with staff. He has no new complaint. OBJECTIVE: The patient denies intent to harm himself or others. He is only partially oriented. He is cooperative with his dialysis. ASSESSMENT: Dementia. PLAN: The patient is going to have his Celexa increased slightly. At this point, his wants him placed in a senior living in [facility]. Attempts are being made to accomplish that. Once he is accepted there, he can be transferred to [facility]. TRANSINT:[id number] Voice Confirmation ID: [id number] DOCUMENT ID: [id number] LEANDRO TAYLOR MD at 1500 CC: [id number] DICTATION DATE: 01/27/20 1302 FURNACE OPERATOR AND TENDER: 01/27/20 1314 ADM IN [place] [id number] [place] [address]
--- NOTE | 2020-01-28 16:30 | NUR ---
TOO CALLED PT'S SISTER, ALCIRA, AFTER SHE LEFT ANOTHER MESSAGE ON THE UNIT STATING THE PLACES SHE REQUESTED DON'T HAVE PAPERWORK FROM SW YET. TOO STATED SHE FAXED PPW TO 6 DIFFERENT FACILITIES. TOO ALSO STATED SHE HAS 15 PTS ON THE UNIT AND WHEN SHE IS NOT ANSWERING HER PHONE SHE IS ON THE PHONE WITH ANOTHER FAMILY MEMBER OR DOING OTHER JOB DUTIES. TOO APOLOGIZED FOR NOT BEING WITHIN REACH AFTER BOTH PHONE CALLS THIS MORNING. ALCIRA STATED SHE UNDERSTOOD. TOO EXPLAINED THE PROCESS OF REFERRALS AND STATED IT WOULD NOT BE A NEXT DAY DISCHARGE DUE TO HER NEEDING TO FILL OUT PAPERWORK FOR THE ACCEPTING FAICLITY. TOO REPORTED SHE HAS ALREADY HAD A CALL BACK FROM [facility] AND THEY WILL DISCUSS PT IN MORNING MEETING. TOO REPORTED SHE WILL DO FOLLOW UP CALLS TOMORROW AFTER THE FACILITIES MORNING MEETINGS SO WE COULD HAVE A BETTER UNDERSTANDING OF WHO IS CONSIDERING TAKING PT. TOO STATED SHE WOULD CALL AFTER SHE GETS UPDATES. TOO SENT REFERRALS TO [facility]
--- NOTE | 2020-01-28 17:00 | NUR ---
RECEIVED IN HALLWAY OUTSIDE OF NURSES STATION. CALM AND COOPERATIVE WITH CARE AND ASSESSMENT. NO AGGRESSIVE BEHAVIORS. REDIRECT AND REORIENT NEEDED. EATING AT THIS TIME. CONTINUE PLAN OF CARE.
--- NOTE | 2020-01-28 20:00 | NUR ---
RECEIVED IN DAYROOM. SITTING CALMLY IN A RECLINER WITH PEERS AT HIS SIDE. CALM AND COOPERATIVE WITH CARE AND ASSESSMENT, NO SIGNS OF HALLUCINATIONS OR AGGRESSION. REDIRECT AND REORIENT NEEDED. CONTINUES TO SIT CALMLY IN DAYROOM. CONTINUE PLAN OF CARE.
[2020-01-28 20:09] VITALS: BP 101/65
[2020-01-29 10:06] VITALS: BP 127/75
--- NOTE | 2020-01-29 10:10 | NUR ---
TOO SPOKE WITH PT'S SISTER AND UPDATED THAT [facility] HAS ACCEPTED PT FOR LTC. TOO STATED THE NEXT STEPS FOR SISTER TO DO IN THE PROCESS. ALCIRA STATED SHE WOULD GET WITH THE FACILITY. TOO STATED HIS TREATMENTS WILL HAVE TO BE TRANSFERED TO [facility]. ALCIRA STATED SHE WOULD COME PICK HIM UP TO DRIVE HIM TO [place].
[2020-01-29] MEDS ORDERED: NORVASC5 MG PO (13:01)
[2020-01-29] MEDS ORDERED: COZAAR50 MG PO (13:01)
[2020-01-29] MEDS ORDERED: NAMENDA5 MG PO (13:02)
[2020-01-29] MEDS ORDERED: CELEXA20 MG PO (13:02)
[2020-01-29] MEDS ORDERED: Megace ES [CHEMO] PO (13:03)
[2020-01-29] MEDS ORDERED: FLORAJEN3 CAPS460 MG PO (13:03)
--- NOTE | 2020-01-29 13:11 | NUR ---
The patient is pleasant this am, he has poor insight into his situation. He is calm, but he is comfused. He said "I'm not ever coming here again." He is weak today and it has taken two staff to transfer him. Provide prescribed meds. The patient is compliant with meds. The patient is going to d/c today. Belongings accounted. Continue discharge plan.
--- NOTE | 2020-01-29 13:29 | NUR ---
D/C'd the patient's saline lock in his right wrist area. Cath tip intact. Patient tolerated well. D/C'd per Ani English RN.
--- NOTE | 2020-01-29 14:45 | NUR ---
PATIENT DISCHARGED TO [facility]. BEING TRANSPORTED TO [facility] BY HIS SISTER, ALCIRA. PATIENT AND SISTER EDUCATED ON MEDICATIONS AND DISCHARGE. THEY BOTH VERBALIZE UNDERSTANDING. REPORT CALLED TO DONNELL FINNEGAN. PAPERWORK FAXED TO [facility] AND HARD COPY SENT WITH PATIENT. PERSONAL BELONGINGS SENT WITH PATIENT.
--- NOTE | 2020-01-29 14:51 | PN ---
PATIENT:JOSE M SERVIN MEDICAL RECORD: [id number] LOCATION:[facility] ADMISSION DATE: 01/13/20 PROGRESS NOTE DATE OF SERVICE: 01/28/2020 SUBJECTIVE: The patient's case was discussed with staff. He has no new complaint. OBJECTIVE: The patient is in good behavioral control. He is poorly oriented, but cooperative with both dialysis and medications. ASSESSMENT: Dementia. PLAN: The patient will be transferred to a long-term close to his in [facility] as soon as we can arrange placement. TRANSINT:[id number] Voice Confirmation ID: [id number] DOCUMENT ID: [id number] LEANDRO TAYLOR MD at 1451 CC: [id number] DICTATION DATE: 01/28/20 1521 BEHAVIORAL HEALTH RN: 01/28/20 2232 ADM IN [facility] [address] [place] [address]
== END 2020-01-29 14:45 | DRG 56 ==
LOC: D.PSYCH 16:39
PROVIDERS: Internal Medicine; Internal Medicine Nephrology; ADMIT Psychiatry & Neurology Psychiatry; ATTEND Psychiatry & Neurology Psychiatry
DX: G30.1 Alzheimer's disease with late onset (principal); N18.6 End stage renal disease; F02.81 Dementia in other diseases classified elsewhere, unspecified severity, with behavioral disturbance; I12.0 Hypertensive chronic kidney disease with stage 5 chronic kidney disease or end stage renal disease; L03.116 Cellulitis of left lower limb; Z99.2 Dependence on renal dialysis; K21.9 Gastro-esophageal reflux disease without esophagitis; D63.1 Anemia in chronic kidney disease; E78.5 Hyperlipidemia, unspecified; R33.9 Retention of urine, unspecified; R63.0 Anorexia; K59.00 Constipation, unspecified; E21.3 Hyperparathyroidism, unspecified; R26.9 Unspecified abnormalities of gait and mobility; M17.0 Bilateral primary osteoarthritis of knee